=== PATIENT | female | born 1965 | race Hispanic/Latino ===

== ENCOUNTER → 2023-10-15 | Outpatient (REF) | payer BC ==
[~2023-10-15] MED LIST: FISH OIL 1,0001 EACH PO; IOPAMIDOL 370 MG/ML 100 ML INFUS..BTL INJ ONE; ZYRTEC-D TABLE1 EACH PO
== END ==
LOC: CT 07:10
PROVIDERS: ATTEND Internal Medicine Gastroenterology
DX: K63.9 Disease of intestine, unspecified (principal)
CPT/HCPCS: 74160; Q9967